=== PATIENT | female | born 1975 | race Hispanic/Latino ===

== ENCOUNTER → 2024-12-27 | Outpatient (CLI) | payer SELFPAY ==
--- NOTE | 2024-12-27 15:19 | HMCIMG ---
EXAM: TRANSVAGINAL PELVIC ULTRASOUND, NONOBSTETRIC Technique: Real-time grayscale transvaginal ultrasound of the pelvis was performed with color Doppler applied as needed for characterization. Examination quality is limited by nonvisualization of the left ovary. Clinical Information: Uterine hypertrophy. Findings: The uterus measures approximately 10.0 ??? 4.2 ??? 6.3 centimeters in overall dimensions. The endometrial thickness measures approximately 7 millimeters. There is a uterine leiomyoma measuring approximately 4.7 ??? 4.6 ??? 6.0 centimeters. The right ovary measures approximately 4.8 ??? 3.9 ??? 3.1 centimeters. There is a right ovarian cyst measuring approximately 3.5 ??? 3.2 ??? 3.3 centimeters with no complex internal features described. The left ovary is not visualized on this examination. The left adnexa, as visualized, is within normal limits without adnexal mass. There is no free fluid identified in the cul-de-sac. Impression: * Uterine leiomyoma measuring approximately 6.0 centimeters. * Right ovarian cyst measuring approximately 3.5 centimeters; sonographic description is consistent with a simple cyst on this examination. * Left ovary not visualized; no left adnexal mass identified on the portions seen. * Endometrial thickness of approximately 7 millimeters. /[place]
== END | disposition home or self-care (01) ==
LOC: RAH 10:03
PROVIDERS: ATTEND Obstetrics & Gynecology
DX: D25.9 Leiomyoma of uterus, unspecified (principal); N83.201 Unspecified ovarian cyst, right side; N85.2 Hypertrophy of uterus
CPT/HCPCS: 76830